=== PATIENT | male | born 1995 | race Caucasian/White ===

== ENCOUNTER 2016-11-18 11:14 | Day surgery (SDC) | payer OTHER ==
--- NOTE | 2016-11-18 11:43 | EDPHY ---
H & P Smoking Status: Never smoked Time Seen by Provider: 11/18/16 11:20 HPI/ROS: CHIEF COMPLAINT: Painful right elbow HISTORY OF PRESENT ILLNESS: 21-year-old male presents to the emergency department by private vehicle complaining of severe pain and swelling to his right elbow over last 1 week. Patient denies any known trauma or injury. Feels that the swelling and the pain has gotten worse even over last 2 days. He went to [facility] yesterday and had negative x-rays. He apparent had laboratory studies which were within normal limits. The patient states he has pain especially with range of motion. He has been wearing a sling for comfort and taking hydrocodone for severe pain. He does report that he tested positive for Chlamydia and treated with Zithromax 2 weeks ago. He denies sore throat. Denies fevers. Denies rash. Denies pain in the right axilla. Denies symptoms in the left upper extremity or the lower extremities bilaterally. No chest pain or difficulty breathing. Denies abdominal pain. Denies rash. REVIEW OF SYSTEMS: Constitutional: No fever, no chills. Eyes: No double or blurry vision. ENT: No sore throat. Respiratory: No cough, no shortness of breath. Cardiac: No chest pain. Gastrointestinal: No abdominal pain, vomiting or diarrhea. Genitourinary: No dysuria. Musculoskeletal: Right elbow pain as above. No neck or back pain. Skin: No rashes. Neurological: No headache. (Myrtle Whittington) Past Medical/Surgical History: Negative (Myrtle Whittington) Social History: [employer] [facility] [employer] student (Myrtle Whittington) Physical Exam: General Appearance: Alert, no distress. Afebrile and nontoxic-appearing. Eyes: Pupils equal and round. Extraocular motions are all intact. ENT: Mouth: Mucous membranes moist. No posterior pharyngeal injection noted. Respiratory: No wheezing, rhonchi, or rales, lungs are clear to auscultation. Cardiovascular: Regular rate and rhythm. Gastrointestinal: Abdomen is soft and nontender, no masses, no rebound or guarding, bowel sounds normal. Neurological: Alert and oriented x 3, cranial nerves II through XII grossly intact Skin: Swelling, redness and warmth noted to the right elbow. Warm and dry, no rashes. Musculoskeletal: Nontender to palpate along the cervical, thoracic or lumbar spine. Neck is supple. Extremities: The right elbow was held in 90 of flexion. Even with just slight extension he has excruciating pain. He is unable to supinate the right elbow secondary to pain. Has redness and warmth to the right elbow. It is significantly swollen in the right elbow joint compared to the left. Diffusely tender to palpate the right elbow. Right wrist is nontender. Right shoulder is nontender. No palpable right axillary lymphadenopathy. Psychiatric: Patient is oriented X 3, there is no agitation. (Myrtle Whittington) Constitutional: Initial Vital Signs Temperature (C) 36.5 C 11/18/16 11:15 Heart Rate 107 H 11/18/16 11:15 Respiratory Rate 18 11/18/16 11:15 Blood Pressure 139/76 H 11/18/16 11:15 O2 Sat (%) 91 L 11/18/16 11:15 O2 Delivery Mode Room Air Allergies/Adverse Reactions: No Known Allergies Allergy (Unverified 11/18/16 11:16) Home Medications: Medication Instructions Recorded HYDROCODONE BIT/ACETAMINOPHEN 11/18/16 Medical Decision Making ED Course/Re-evaluation: 21-year-old male with severe right elbow pain. I explained to the patient that I was concerned about possible septic arthritis. X-rays of the right elbow were not repeated since he just had these done yesterday and they were negative. The patient tells me 2 weeks ago he tested positive for Chlamydia and was treated with 1 g of Zithromax p. o.. The patient states that his gonorrhea was negative. He was seen at work yesterday and had x-rays of the right elbow which were negative. He apparently also had laboratory studies which he was told were within normal limits. No history of gout. The patient was also seen examined by Dr. Jesus Littlejohn who performed joint aspiration. See his procedure note. Dr. Santos to evaluate the patient in the emergency department and the patient will be taken to the operating room for operative washout. (Myrtle Whittington) Differential Diagnosis: Including but not limited to septic arthritis, bursitis, cellulitis, gout, osteomyelitis, fracture, sprain (Myrtle Whittington) Other Provider: Independent physician evaluation I evaluated and participated in the management of the patient. I also evaluated the patient independently. My co-signature indicates that I have reviewed this chart and I agree with the findings and plan of care as documented. My personal H&P findings include: The patient presents to the ED for evaluation of atraumatic right elbow pain and swelling. The patient's symptoms have been present for several days. The patient has recently been treated for asymptomatic Chlamydia. The patient did have a negative gonorrhea test at that time. The patient does have a remote history of knee effusions attributed to heavy lifting. The patient denies any rash. He denies any urethral discharge. He denies additional complaints. PHYSICAL EXAM General Appearance: Alert, no distress Eyes: Pupils equal and round no pallor or injection ENT, Mouth: Mucous membranes moist Respiratory: There are no retractions, lungs are clear to auscultation Cardiovascular: Regular rate and rhythm Gastrointestinal: Abdomen is soft and nontender, no masses, bowel sounds normal Neurological: A&O, normal motor function, normal sensory exam, normal cranial nerves Skin: Warm and dry, no rashes Musculoskeletal: Neck is supple nontender Extremities: Tenderness and swelling noted in the right elbow. Unable to extend, supinate/pronate upper extremity I reviewed the laboratory studies including an elevated CRP. The patient presents to the ED with a physical exam worrisome for possible septic arthritis. The patient was verbally consented to undergo arthrocentesis which was performed by myself without complication. Procedure: Arthrocentesis. Indication: Evaluation for the possibility of septic joint. Risks, benefits, alternatives of the procedure were discussed with the patient and consent obtained. The patient was prepped and draped in the usual sterile fashion over the right elbow joint. Local anesthesia was provided with 1% lidocaine. The joint space was entered with a the 18 gauge gauge needle and 10 cc of yellow, slightly turbid fluid was obtained. There were no complications. The procedure was performed by myself, Dr. Vinyn Littlejohn. Synovial fluid analysis demonstrates 22,000 white cells. Preliminary read of crystal analysis is negative. Gram stain demonstrates no organisms. Consultation was made with Dr. Eloy Santos from Orthopedic surgery. The patient will be taken to the operating room for a washout this evening. Patient did receive IV antibiotics in the ED. (Vinny Littlejohn) - Data Points Laboratory Results: Laboratory Results 11/18/16 11:55 11/18/16 11:55 11/18/16 11/18/16 11/18/16 12:43 11:55 11:55 WBC 8.68 10^3/uL 10^3/uL (3.80-9.50) RBC 5.26 10^6/uL 10^6/uL (4.40-6.38) Hgb 16.0 g/dL g/dL (13.7-17.5) Hct 46.8 % % (40.0-51.0) MCV 89.0 fL fL (81.5-99.8) MCH 30.4 pg pg (27.9-34.1) MCHC 34.2 g/dL g/dL (32.4-36.7) RDW 12.2 % % (11.5-15.2) Plt Count 234 10^3/uL 10^3/uL (150-400) MPV 9.6 fL fL (8.7-11.7) Neut % (Auto) 66.1 % % (39.3-74.2) Lymph % (Auto) 21.7 % % (15.0-45.0) [place] % (Auto) 11.3 % % (4.5-13.0) Eos % (Auto) 0.5 % L % (0.6-7.6) Baso % (Auto) 0.2 % L % (0.3-1.7) Nucleat RBC Rel Count 0.0 % % (0.0-0.2) Absolute Neuts (auto) 5.74 10^3/uL 10^3/uL (1.70-6.50) Absolute Lymphs (auto) 1.88 10^3/uL 10^3/uL (1.00-3.00) Absolute Monos (auto) 0.98 10^3/uL H 10^3/uL (0.30-0.80) Absolute Eos (auto) 0.04 10^3/uL 10^3/uL (0.03-0.40) Absolute Basos (auto) 0.02 10^3/uL 10^3/uL (0.02-0.10) Absolute Nucleated RBC 0.00 10^3/uL 10^3/uL (0-0.01) Immature Gran % 0.2 % % (0.0-1.1) Immature Gran # 0.02 10^3/uL 10^3/uL (0.00-0.10) ESR 9 MM/HR MM/HR (0-15) Sodium 139 mEq/L mEq/L (134-144) Potassium 4.2 mEq/L mEq/L (3.5-5.2) Chloride 102 mEq/L mEq/L (97-110) Carbon Dioxide 26 mEq/l mEq/l (22-31) Anion Gap 11 mEq/L mEq/L (8-16) BUN 12 mg/dL mg/dL (7-23) Creatinine 1.0 mg/dL mg/dL (0.7-1.3) Estimated GFR > 60 Glucose 86 mg/dL mg/dL (70-100) Calcium 9.8 mg/dL mg/dL (8.5-10.4) C-Reactive Protein 52.2 mg/L H mg/L (<10.0) Fl Pathologist Review Pending Synovial Source SYNOVIAL Synovial Color YELLOW H (CLS/PALE YL) Synovial Appearance CLOUDY H (CLEAR) Synovial WBC 10845 /mm3 H /mm3 (0-150) Synovial RBC 2340 /mm3 H /mm3 (0-0) Synovial Neutrophils 84 % H % (0-25) Synovial Lymphocytes 14 % % Synov Monos/Macrophage 2 % % Synovial Crystals Pending Microbiology Results: MICROBIOLOGY 11/18/16 12:43 Elbow - Aspirate Gram Stain - Final Medications Given: Discontinued Medications Fentanyl (Sublimaze) 50 mcg IVP EDNOW ONE Stop: 11/18/16 12:14 Last Admin: 11/18/16 12:15 Dose: 50 mcg Fentanyl (Sublimaze) 50 mcg IVP EDNOW ONE Stop: 11/18/16 12:47 Last Admin: 11/18/16 12:55 Dose: 50 mcg Ceftriaxone Sodium/Dextrose (Rocephin 1 Gm (Premix)) 50 mls @ 100 mls/hr IV EDNOW ONE PRN Reason: Protocol Stop: 11/18/16 15:12 Last Admin: 11/18/16 15:09 Dose: 50 mls Departure - Departure Disposition: To OP Cath/Surgery Clinical Impression: Septic arthritis Qualifiers: Septic arthritis location: elbow Septic arthritis organism: due to unspecified organism Laterality: right Qualified Code(s): M00.9 - Pyogenic arthritis, unspecified Condition: Good
[2016-11-18 12:02] LABS: % IMMATURE GRANULYOCYTES 0.2 % (0.0-1.1); ABSOLUTE IMMATURE GRANULOCYTES 0.02 10^3/uL (0.00-0.10); ADD DIFF? NO; ADD MORPH? NO; ADD SCAN? NO; ATYPICAL LYMPHOCYTE FLAG 20 (0-99); FRAGMENT RBC FLAG 0 (0-99); HEMATOCRIT 46.8 % (40.0-51.0); LEFT SHIFT FLG 0 (0-99); LIPEMIA HEMOLYSIS FLAG 90 (0-99); MEAN CELL HEMOGLOBIN 30.4 pg (27.9-34.1); MEAN CELL HEMOGLOBIN CONCENTR. 34.2 g/dL (32.4-36.7); MEAN PLATELET VOLUME 9.6 fL (8.7-11.7); PLATELET CLUMPS FLAG 0 (0-99); PLATELET COUNT 234 10^3/uL (150-400); RED BLOOD CELL COUNT 5.26 10^6/uL (4.40-6.38); RED CELL DISTRIBUTION WIDTH 12.2 % (11.5-15.2)
[2016-11-18] MEDS ORDERED: fentaNYL 100 MCG/2 ML INJ ONE ×3 (12:05→16:49)
[2016-11-18 12:09] LABS: SEDIMENTATION RATE 9 MM/HR (0-15)
[2016-11-18] MEDS ORDERED: fentaNYL 100 MCG/2 ML INJ IVP ONE ×2 (12:13→12:46)
[2016-11-18 12:24] LABS: ANION GAP 11 mEq/L (8-16); C-REACTIVE PROTEIN 52.2 mg/L (<10.0); CALCIUM 9.8 mg/dL (8.5-10.4); CARBON DIOXIDE 26 mEq/l (22-31); CHLORIDE 102 mEq/L (97-110); GLOMERULAR FILTRATION RATE > 60; GLUCOSE 86 mg/dL (70-100); POTASSIUM 4.2 mEq/L (3.5-5.2); SODIUM 139 mEq/L (134-144)
[2016-11-18 13:30] VITALS: RESP 16
[2016-11-18 13:38] LABS: WBC, SYNOVIAL FLUID 22196 /mm3 (0-150)
[2016-11-18 13:51] LABS: CRYSTALS, SYNOVIAL FLUID NONE SEEN (NONE SEEN)
[2016-11-18 14:31] VITALS: O2SAT 95
[2016-11-18 15:12] VITALS: BP 136/75; PULSE 79; TEMP 98.8
[2016-11-18] MEDS ORDERED: BUPIVACAINE 0.5% 30 ML SDV ONE (15:13)
[2016-11-18] MEDS ORDERED: PROPOFOL 200 MG/20 ML VIAL ONE (15:24)
[2016-11-18] MEDS ORDERED: MIDAZOLAM 2 MG/2 ML VIAL ONE (15:25)
[2016-11-18] MEDS ORDERED: DEXAMETHASONE 4 MG/ML VIAL ONE (15:55)
[2016-11-18] MEDS ORDERED: ONDANSETRON 4 MG/2 ML VIAL ONE (15:55)
[2016-11-18] MEDS ORDERED: HYDROmorphONE/DILAUDID 1 MG/ML SYR ONE (16:58)
[2016-11-18] MEDS ORDERED: OXYCODONE/APAP 5/325 TAB ONE (17:22)
--- NOTE | 2016-11-18 18:29 | GCON ---
[f rep st] CONSULTATION REASON FOR CONSULTATION: Right elbow pain. HISTORY OF PRESENT ILLNESS: The patient is a 21-year-old with a recent onset of right elbow pain, s welling, and erythema. He presented to the emergency room. Aspiration revealed turbid fluid with in creased white cells. EXAMINATION: There is swelling in his elbow with probable effusion. He had very limited active and passive range of motion. Attempts at passive range of motion produced significant pain. His dista l neurovascular exam was grossly intact. ASSESSMENT: Right septic elbow. PLAN: It was recommended that operative treatment consisting of irrigation and debridement be pursu ed. This will be scheduled as soon as OR availability allows. /[id number]/MODL
--- NOTE | 2016-11-18 18:48 | GOP ---
[f rep st] OPERATIVE REPORT DATE OF OPERATION: 11/18/2016 SURGEON: Eloy Santos MD ANESTHESIA: General. PREOPERATIVE DIAGNOSIS: Right septic elbow. POSTOPERATIVE DIAGNOSIS: Right septic elbow. PROCEDURE PERFORMED: Right elbow arthrotomy, and irrigation and debridement. FINDINGS: SPECIMENS: Culture and sensitivity were sent from the elbow fluid. ESTIMATED BLOOD LOSS: Minimal. INDICATIONS: Patient is a 21-year-old with recent onset of elbow pain and swelling. Clinically and based on aspiration in the emergency room, it was felt that he had a septic elbow. Based on this f actor, it was recommended that operative treatment consisting of arthrotomy and irrigation debrideme nt be pursued. The patient acknowledged he understood the potential risks of the operation, includi ng, but not limited to, bleeding, infection, neurovascular damage, loss of limb, loss of function, p ersistence of infection despite operative treatment, pain or functional limitations, and anesthetic risks. He acknowledged he understood the potential risks, planned procedure, and postop plan, and h ad all questions answered prior to surgery. He gave his consent for the operative procedure. DESCRIPTION OF PROCEDURE: The patient was brought to the operating room after IV antibiotics were a dministered. A tourniquet was placed on his right upper arm. His right upper extremity was prepped and draped in standard sterile fashion. After marking the incision and Marko wrap exsanguination, the tourniquet was inflated to 250. A longi tudinal incision was made along the posterolateral aspect of the elbow centered over the radial capi tellar joint. Skin, subcutaneous tissue were sharply incised. Care was taken to avoid the radial n erve branch. Dissection was carried down to the joint capsule, which was longitudinally incised. A copious amoun t of murky discharge was expressed and cultured. The joint was copiously irrigated with 6 L of ster ile saline utilizing gravity and wide bore cystoscopy tubing. No evidence of continued fluid was pr esent. Attention was then directed towards closure. One stitch was loosely placed in the capsule leaving r oom for fluid to be continued to drain. Subcutaneous tissue was closed with 3-0 Vicryl suture inter rupted fashion and the skin closed with 4-0 nylon interrupted sutures. 0.5% Marcaine without epinep hrine was injected in the wounds sites. The wounds were dressed sterile Adaptic, 4x4, and Kerlix. Patient tolerated the procedure well and was taken to the recovery room extubated, in stable conditi on postoperatively. All sponge, needle, and instrument counts were reported as being correct. DRAINS: None. COMPLICATIONS: None. PLAN: The patient will be discharged home on oral antibiotics on the recommendations of the emergen cy room staff. Followup will be in 1 week. Copy requested to: chart /[id number]/MODL
== END 2016-11-18 18:05 | disposition home or self-care (01) ==
LOC: FSGY 15:28
PROVIDERS: ATTEND Orthopaedic Surgery Foot and Ankle Surgery
PROC: 0M933ZZ Drainage of Right Elbow Bursa and Ligament, Percutaneous Approach (ICD-10-PCS; 2016-11-18)
PROC: 0R9L0ZZ Drainage of Right Elbow Joint, Open Approach (ICD-10-PCS; principal; 2016-11-18 15:30)
DX: M00.9 Pyogenic arthritis, unspecified (principal); M25.521 Pain in right elbow
CPT/HCPCS: J0696; J1100; J1170; J2250; J2405; J2704; J3010

== ENCOUNTER 2016-11-21 17:57 | Emergency (ER) | payer OTHER ==
[2016-11-21] MEDS ORDERED: HYDROmorphONE/DILAUDID 1 MG/ML SYR ONE (18:42)
[2016-11-21] MEDS ORDERED: LORazepam 2 MG/ML INJ ONE (18:42)
--- NOTE | 2016-11-21 18:49 | EDPHY ---
H & P Stated Complaint: Left knee swelling Time Seen by Provider: 11/21/16 18:13 HPI/ROS: CHIEF COMPLAINT: Left knee swelling, history of septic arthritis right elbow HISTORY OF PRESENT ILLNESS: 21-year-old immunocompetent male with recent orthopedic consultation and operative suite management of suspected septic arthritis By Dr. Eloy Santos, seen the ER 3 days ago. He returns to the emergency department complaining progressive left knee pain and swelling for the past 9 days. No fever no chills.. He has full extension and flexion to 90 degrees beyond which he has notable pain. He tested positive for Chlamydia was treated with Zithromax 2 weeks ago. no rash REVIEW OF SYSTEMS: A ten point review of systems was performed and is negative with the exception of the items mentioned in the HPI PAST MEDICAL & SURGICAL HISTORY: Recent diagnosis of suspected septic arthritis right elbow. History positive Chlamydia testing SOCIAL HISTORY: student PHYSICAL EXAM (Prior to examination, patient consented to physical exam, hands were washed and my usual and customary physical exam procedures followed) 1) GENERAL: Well-developed, well-nourished, alert and oriented. Appears to be in no acute distress. 2) HEAD: Normocephalic, atraumatic 3) HEENT: Pupils equal, round, reactive to light bilaterally. Sclera anicteric. 4) NECK: Full range of motion, no meningeal signs. 5) LUNGS: Clear auscultation bilaterally,s. 6) HEART: Regular rate and rhythm, no murmur, no heave, no gallop. 7) ABDOMEN: No guarding, no rebound, no focal tenderness,n, 8) MUSCULOSKELETAL: Left lower extremity: There is soft tissue swelling of the supra patellar region of the left knee . Normal color normal temperature. No erythema. No induration. Full extension which is pain free. He has flexion to 90 degrees. Flexion beyond 90 degrees elicits pain along the anterior aspect of the knee. Axial loading of the left knee elicits only mild pain. Compartments are soft There is no gross instability. Distal DP PT pulses present and brisk. 9) BACK: no visual or palpable abnormality. 10) SKIN: No rash, no petechiae. DIFFERENTIAL DIAGNOSIS: in no particular include but limited to compartment syndrome, DVT, septic arthritis, rheumatologic disorder - Personal History Current Tetanus/Diphtheria Vaccine: Yes Current Tetanus Diphtheria and Acellular Pertussis (TDAP): Yes - Medical/Surgical History Hx Asthma: No Hx Chronic Respiratory Disease: No Hx Diabetes: No Hx Cardiac Disease: No Hx Renal Disease: No Hx Cirrhosis: No Hx Alcoholism: No Hx HIV/AIDS: No Hx Splenectomy or Spleen Trauma: No Other PMH: septic arthritis - Social History Smoking Status: Never smoked Constitutional: Initial Vital Signs Temperature (C) 36.9 C 11/21/16 18:05 Heart Rate 94 11/21/16 18:05 Respiratory Rate 14 11/21/16 18:05 Blood Pressure 126/76 H 11/21/16 18:05 O2 Sat (%) 94 11/21/16 18:05 O2 Delivery Mode Room Air Allergies/Adverse Reactions: No Known Allergies Allergy (Unverified 11/21/16 18:04) Home Medications: Medication Instructions Recorded HYDROCODONE BIT/ACETAMINOPHEN 11/18/16 Medical Decision Making - Diagnostics Imaging: Left Lower Extremity Deep Venous Duplex Doppler Ultrasound History: Left lower extremity leg pain and swelling. Technique: The left lower extremity deep venous system and veins of the proximal calf were interrogated with grayscale, color, and spectral Doppler imaging. Findings: The left common femoral, superficial femoral, popliteal, and veins of the calf normally compress on grayscale imaging. The deep venous system and veins of the proximal calf have normal flow and expected variability. The visualized greater saphenous vein compresses normally without thrombus. Mild edema is present within the calf. There is a moderate effusion in the suprapatellar bursa. Impression: No deep venous thrombosis in the left lower extremity. Moderate effusion suprapatellar bursa. Findings and recommendations discussed with Marianne Garcia PAC at 19:22 hour, . Xray of the left knee interpreted by myself: no definitive acute osseous abnormality, effusion noted Procedures: 6:30 p.m.: Procedure: Arthrocentesis. Indication: Evaluation for the possibility of septic joint. Risks, benefits, alternatives of the procedure were discussed with the patient and consent obtained. The patient was prepped and draped in the usual sterile fashion over the Left medial knee joint. Local anesthesia was provided with 1% lidocaine. The joint space was entered with a 18 gauge needle and 10 cc of cloudy straw fluid fluid was obtained. There were no complications. The procedure was performed by myself. Patient tolerated procedure well ED Course/Re-evaluation: I reviewed the patient's microbiological joint aspiration studies which are negative for growth at 72 and 60 hours, both body fluid culture anaerobic culture from the right elbow. 8:00 p.m.: Discussed case Dr. Armani Bianchi in the ER. I think given the patient's suprapatellar effusion findings, 9000 WBC on arthrocentesis of the synovial fluid I think that septic arthritis is less than likely in this patient at this time. Nonetheless, as he has previously seen Dr. Eloy Santos few days ago was taken to the OR by Dr. Eloy Santos I spoke with orthopedics ADOLFO Weaver at this time who is familiar with this patient's case, informs me that the patient does have an appointment with Dr. Eloy Santos on Thursday (today is Thursday). At this time I do not think that further intervention is indicated. He will be discharged with my usual and customary orthopedic precautions and instructions. Recommended elevation, ice packs. He feels comfortable being discharged. All questions and concerns addressed by myself. - Data Points Laboratory Results: Laboratory Results 11/21/16 18:40 11/21/16 18:40 11/21/16 11/21/16 11/21/16 18:51 18:40 18:40 WBC 8.11 10^3/uL 10^3/uL (3.80-9.50) RBC 4.77 10^6/uL 10^6/uL (4.40-6.38) Hgb 14.3 g/dL g/dL (13.7-17.5) Hct 41.8 % % (40.0-51.0) MCV 87.6 fL fL (81.5-99.8) MCH 30.0 pg pg (27.9-34.1) MCHC 34.2 g/dL g/dL (32.4-36.7) RDW 12.0 % % (11.5-15.2) Plt Count 240 10^3/uL 10^3/uL (150-400) MPV 9.7 fL fL (8.7-11.7) Neut % (Auto) 56.4 % % (39.3-74.2) Lymph % (Auto) 30.9 % % (15.0-45.0) [place] % (Auto) 11.2 % % (4.5-13.0) Eos % (Auto) 0.9 % % (0.6-7.6) Baso % (Auto) 0.4 % % (0.3-1.7) Nucleat RBC Rel Count 0.0 % % (0.0-0.2) Absolute Neuts (auto) 4.57 10^3/uL 10^3/uL (1.70-6.50) Absolute Lymphs (auto) 2.51 10^3/uL 10^3/uL (1.00-3.00) Absolute Monos (auto) 0.91 10^3/uL H 10^3/uL (0.30-0.80) Absolute Eos (auto) 0.07 10^3/uL 10^3/uL (0.03-0.40) Absolute Basos (auto) 0.03 10^3/uL 10^3/uL (0.02-0.10) Absolute Nucleated RBC 0.00 10^3/uL 10^3/uL (0-0.01) Immature Gran % 0.2 % % (0.0-1.1) Immature Gran # 0.02 10^3/uL 10^3/uL (0.00-0.10) ESR 10 MM/HR MM/HR (0-15) Sodium 138 mEq/L mEq/L (134-144) Potassium 4.2 mEq/L mEq/L (3.5-5.2) Chloride 101 mEq/L mEq/L (97-110) Carbon Dioxide 26 mEq/l mEq/l (22-31) Anion Gap 11 mEq/L mEq/L (8-16) BUN 13 mg/dL mg/dL (7-23) Creatinine 0.9 mg/dL mg/dL (0.7-1.3) Estimated GFR > 60 Glucose 99 mg/dL mg/dL (70-100) Calcium 9.5 mg/dL mg/dL (8.5-10.4) C-Reactive Protein 28.3 mg/L H mg/L (<10.0) Fl Pathologist Review Pending Synovial Source SYNOVIAL Synovial Color YELLOW H (CLS/PALE YL) Synovial Appearance CLOUDY H (CLEAR) Synovial WBC 9046 /mm3 H /mm3 (0-150) Synovial RBC 38560 /mm3 H /mm3 (0-0) Synovial Neutrophils 54 % H % (0-25) Synovial Lymphocytes 28 % % Synov Monos/Macrophage 18 % % Synovial Crystals Pending Synovial Glucose 92 mg/dL mg/dL (55-113) Microbiology Results: MICROBIOLOGY 11/21/16 18:30 Synovial Fluid - Aspirate Gram Stain - Final Medications Given: Discontinued Medications Hydromorphone HCl (Dilaudid) 1 mg IVP EDNOW ONE Stop: 11/21/16 18:51 Last Admin: 11/21/16 18:50 Dose: 1 mg Lorazepam (Ativan Injection) 1 mg IVP EDNOW ONE Stop: 11/21/16 18:51 Last Admin: 11/21/16 18:50 Dose: 1 mg Departure - Departure Disposition: Home, Routine, Self-Care Clinical Impression: Suprapatellar effusion, Knee effusion, left Condition: Good Instructions: Swollen Knee Joint (ED) Additional Instructions: Return to the ER if you develop new or worsening symptoms, worsening pain, decreased range of motion, fever, chills or any other symptoms that concern you Referrals: Eloy Santos MD [Medical Doctor] - 11/24/16 (Keep your appointment with Dr. Eloy Santos on Thursday)
[2016-11-21] MEDS ORDERED: LORazepam 2 MG/ML INJ IVP ONE (18:50)
[2016-11-21] MEDS ORDERED: HYDROmorphONE/DILAUDID 1 MG/ML SYR IVP ONE (18:50)
[2016-11-21 18:53] LABS: % IMMATURE GRANULYOCYTES 0.2 % (0.0-1.1); ABSOLUTE IMMATURE GRANULOCYTES 0.02 10^3/uL (0.00-0.10); ADD DIFF? NO; ADD MORPH? NO; ADD SCAN? NO; ATYPICAL LYMPHOCYTE FLAG 30 (0-99); FRAGMENT RBC FLAG 0 (0-99); HEMATOCRIT 41.8 % (40.0-51.0); HEMOGLOBIN 14.3 g/dL (13.7-17.5); LEFT SHIFT FLG 0 (0-99); LIPEMIA HEMOLYSIS FLAG 90 (0-99); MEAN CELL HEMOGLOBIN CONCENTR. 34.2 g/dL (32.4-36.7); MEAN CELL VOLUME 87.6 fL (81.5-99.8); MEAN PLATELET VOLUME 9.7 fL (8.7-11.7); PLATELET CLUMPS FLAG 10 (0-99); PLATELET COUNT 240 10^3/uL (150-400); RED BLOOD CELL COUNT 4.77 10^6/uL (4.40-6.38)
[2016-11-21 19:06] LABS: SEDIMENTATION RATE 10 MM/HR (0-15)
[2016-11-21 19:14] LABS: ANION GAP 11 mEq/L (8-16); C-REACTIVE PROTEIN 28.3 mg/L (<10.0); CALCIUM 9.5 mg/dL (8.5-10.4); CARBON DIOXIDE 26 mEq/l (22-31); CHLORIDE 101 mEq/L (97-110); CREATININE 0.9 mg/dL (0.7-1.3); GLOMERULAR FILTRATION RATE > 60; GLUCOSE 99 mg/dL (70-100); POTASSIUM 4.2 mEq/L (3.5-5.2); SODIUM 138 mEq/L (134-144)
[2016-11-21 19:25] LABS: WBC, SYNOVIAL FLUID 9046 /mm3 (0-150)
[2016-11-21 19:43] LABS: GLUCOSE, SYNOVIAL FLUID 92 mg/dL (55-113)
[2016-11-21 19:55] LABS: CRYSTALS, SYNOVIAL FLUID NONE SEEN (NONE SEEN)
[2016-11-21 20:22] VITALS: BP 137/82; PULSE 86; RESP 18; TEMP 98.1; O2SAT 93
== END 2016-11-21 20:21 | disposition home or self-care (01) ==
PROC: 0S9D3ZZ Drainage of Left Knee Joint, Percutaneous Approach (ICD-10-PCS; principal; 2016-11-21)
DX: M25.462 Effusion, left knee (principal)
CPT/HCPCS: 96374; J1170